=== PATIENT | female | born 1980 | race Hispanic/Latino ===

== ENCOUNTER 2024-05-12 14:28 | Emergency (ER) | payer SELFPAY ==
--- NOTE | 2024-05-12 14:30 | ED.GENMED ---
History of Present Illness
General
Chief Complaint: Ear Problem
Source: patient
Time Seen by Provider: 05/12/24 14:34
History of Present Illness
History of Present Illness:
43-year-old female presenting to the emergency department for evaluation of left-sided otalgia that is been ongoing for the last 48 hours, gradually worsening, now with some mild pain on the right side as well but states the left side as well as
during her most. Notes some decreased hearing out of the left ear but no drainage. No fevers, chills, rigors, no other URI-like symptoms, denies any cough or any other concerns.
Past History
Past History
ED Past Medical History: None
ED Past Surgical History: None
Social History
Tobacco: Non-smoker
Alcohol: None
Drug: None
Living: with family
Review of Systems
Review of Systems
All Other Systems: ROS reviewed and negative except as documented in HPI and ROS
Phy Exam
Physical Exam
Physical Exam:
GENERAL: Alert , in no apparent distress
EYE: conjunctiva clear
Head: Normocephalic atraumatic
NECK: Supple,
ENT: mmm. Right TM: Clear and pearly, no auditory canal discharge. Left TM: Erythematous with small effusion. There is also canal edema and whitish discharge. Tenderness over the left tragus. No mastoid tenderness or erythema or edema. Dental
cavities but without any abscess formation
LUNGS: no acute respiratory distress
NEUROLOGICAL: Alert and oriented
SKIN: Warm and dry, skin intact.
MUSCULOSKELETAL: well perfused.
PSYCH: Normal and appropriate interaction.
Scores
Heart Failure Risk
Heart Failure Risk Score: Not Applicable
Heart Score for Chest Pain Patients
STEMI patient?: Not applicable
Withdrawal Assessment of Alcohol
Withdrawal Assessment Completed?: Not applicable
Course
Vital Signs
Initial and Last Documented VS:
Initial Vital Signs
Temp Pulse Resp BP Pulse Ox
98.9 F 87 18 149/93 98
05/12/24 14:31 05/12/24 14:31 05/12/24 14:31 05/12/24 14:31 05/12/24 14:31
Last Documented Vital Signs
Temp Pulse Resp BP Pulse Ox
98.9 F 87 18 149/93 98
05/12/24 14:31 05/12/24 14:31 05/12/24 14:31 05/12/24 14:31 05/12/24 14:31
MDM/Problems Addressed
Differential Diagnosis Includes:
Otitis media, otitis externa, mastoiditis
MDM/Problems Addressed:
43-year-old female presenting emergency department for evaluation of 2 days of left-sided otalgia. Based off exam patient has a otitis media and otitis externa on the left. Will treat with Cortisporin otic and amoxicillin. NSAIDs/Tylenol as
needed for pain. Patient is otherwise stable for discharge home. Aware of return precautions.
*Pulse Oximetry
Patient hypoxic: no
*Critical Care Note
Total Time (30-74mins, 75-104mins- exclusive of procedures): Not Applicable
ED Attending Note
-
Portions of this chart may have been created with voice recognition software.� Occasional wrong word or��sound alike� substitutions may have occurred due to the inherent limitations of voice recognition software.
Discharge Plan
Departure
Patient Disposition: Home (Routine Discharge)
Date of Disposition: 05/12/24
Time of Disposition: 14:34
Patient with high blood pressure during this ER visit?: Yes
Discharge Problem:
Acute Otitis Externa, Acute otitis media
Instructions: Outer Ear Infection (DC)
Prescriptions:
New
Cortisporin-TC 3.3-3-10-0.5 mg/mL drops,suspension
4 drp otic (ear) TID 7 Days Qty: 10 0RF
amoxicillin 500 mg tablet
500 mg PO TID 10 Days Qty: 30 0RF
Interventions
Interventions:
*Risk Screen - Suicide Last Done: 05/12/24 14:31
*General Assessment Last Done: 05/12/24 14:31
*Neglect/Abuse Screening Last Done: 05/12/24 14:31
*ED COVID-19 Vaccine History Last Done: 05/12/24 14:31
*Nursing Disposition Last Done: 05/12/24 14:41
Discharge Date and Time
Print Language: ANDORRAN
[2024-05-12 14:31] VITALS: BP 149/93
== END 2024-05-12 14:50 | disposition home or self-care (01) ==
LOC: EMR 14:28
PROVIDERS: EMERGENCY PHYSICIAN Emergency Medicine; FAMILY PHYSICIAN Nurse Practitioner Psychiatric/Mental Health
DX: H60.502 Unspecified acute noninfective otitis externa, left ear (principal); H66.92 Otitis media, unspecified, left ear
CPT/HCPCS: 99282

== ENCOUNTER → 2024-05-23 11:44 | Outpatient (REF) | payer SELFPAY ==
[2024-05-23 16:39] LABS: Hematocrit 32.6 % (37.0-47.0); Mean Corp Hgb Conc. 33.7 g/dL (33.0-37.0); Mean Corpuscular Hgb 29.4 pg (27.0-31.0); Mean Corpuscular Volume 87.2 fL (81.0-99.0); Platelet Count 335 10^3/uL (130-400); Red Blood Cell Count 3.74 10^6/uL (4.20-5.40); Red Cell Dist. Width 14.6 % (11.5-14.5)
[2024-05-23 16:54] LABS: ALT (SGPT) 48 U/L (0-35); AST (SGOT) 34 U/L (14-36); Albumin 4.6 g/dl (3.5-5.0); Alkaline Phosphatase 84 U/L (38-126); Blood Urea Nitrogen 13 mg/dl (7-17); Carbon Dioxide 24 mmol/L (22-30); Chloride 102 mmol/L (98-107); Glucose 98 mg/dl (70-99); Potassium 3.9 mmol/L (3.5-5.1); Sodium 141 mmol/L (135-145); Total Bilirubin 0.2 mg/dl (0.2-1.3); Total Protein 7.4 g/dl (6.3-8.2); eGFR > 60.00
[2024-05-23 17:44] LABS: Vitamin B12 844 pg/ml (239-931)
== END ==
LOC: REG 11:44
PROVIDERS: ATTENDING PHYSICIAN Nurse Practitioner Adult Health
DX: D50.9 Iron deficiency anemia, unspecified (principal)
CPT/HCPCS: 36415; 80053; 82607; 85027